=== PATIENT | male | born 1990 | race Caucasian/White ===

== ENCOUNTER 2021-05-03 11:11 | Emergency (ER) | payer MEDICAID ==
[~2021-05-03] VITALS: Ht 188 cm; Wt 90.7 kg
[2021-05-03] MEDS ORDERED: BENZTROPINE MESYLATE 1MG TABLET PO ONE (12:15)
[2021-05-03] MEDS ORDERED: BENZ1TAB7 MT (13:25)
[2021-05-03 14:23] VITALS: BP 139/81
== END 2021-05-03 15:02 | disposition home or self-care (01) ==
LOC: ER 11:21
DX: R25.1 Tremor, unspecified (principal); F31.9 Bipolar disorder, unspecified; F20.9 Schizophrenia, unspecified
CPT/HCPCS: 99283